=== PATIENT | male | born 1960 | race Two or more races ===

== ENCOUNTER 2019-08-23 18:43 | Emergency (ER) | payer SELFPAY ==
[~2019-08-23] VITALS: Ht 165.1 cm; Wt 68.0 kg
--- NOTE | 2019-08-23 18:58 | NUR ---
ED Nurse Note: Pt walked in from home c/o right lower back pain d/t injury during a basketball game today around 1300. Pt was playing the game when another player ran into him. Pt having difficulty sitting/lying down and changing positions. Respirations even and unlabored on room air. Vitals stable as documented.
[2019-08-23 19:00] VITALS: BP 148/78
--- NOTE | 2019-08-23 19:06 | NUR ---
HAND-OFF: Report given to SNEHAL Crawford. Plan of care endorsed.
--- NOTE | 2019-08-23 19:10 | NUR ---
ED Nurse Note: Received report from SNEHAL Park. Patient resting in room, no acute distress noted.
[2019-08-23] MEDS ORDERED: HYDROcodone/Acetamin 7.5/325 tab ORAL ONE (19:30)
--- NOTE | 2019-08-23 19:30 | Emergency Room Report ---
History of Present Illness General Chief Complaint: Lower Back Pain or Injury Source: Patient Present Illness HPI 59-year-old male presents to the emergency department complaining of 10 out of 10 severity localized pain to the posterior right lower rib after being struck there while playing basketball at approximately 1 PM today. Patient reports he is tried Tylenol several times as well as naproxen with no relief of his symptoms. Patient reports pain is severe and exacerbated upon palpation or taking deep breaths. Patient denies bruising at this time he denies open wounds or bleeding. Patient denies falling completely to the ground. Patient denies having midline neck or back pain. He denies any significant past medical history otherwise. No other aggravating or relieving factors. he denies CP, Palpitations or SOB. He reports severe difficulty with finding a position of comfort. COVID-19 risk:Travel to affect: No Allergies: Coded Allergies: No Known Allergies (Unverified , 08/23/19) Patient History Past Medical History: see triage record Past Surgical History: none Pertinent Family History: none Reviewed Nursing Documentation: PMH: Agreed; PSxH: Agreed Nursing Documentation-PMH Past Medical History: No Stated History Review of Systems All Other Systems: negative except mentioned in HPI Physical Exam Vital Signs Date Time Temp Pulse Resp B/P (MAP) Pulse Ox O2 Delivery O2 Flow Rate FiO2 08/23/19 18:47 98.2 77 16 156/91 (112) 99 Room Air Sp02 EP Interpretation: reviewed, normal General Appearance: no apparent distress, alert, GCS 15, non-toxic Head: normocephalic, atraumatic Eyes: bilateral eye normal inspection, bilateral eye PERRL ENT: hearing grossly normal, normal voice Neck: full range of motion Respiratory: lungs clear, normal breath sounds, speaking full sentences, other - Moderate localized TTP to the posterior lower right ribs, no flail chest, no bruises. Cardiovascular #1: regular rate, rhythm, no edema Gastrointestinal: non tender, soft Rectal: deferred Genitourinary: normal inspection, no CVA tenderness Musculoskeletal: back normal, normal range of motion, gait/station normal, non- tender Neurologic: alert, motor strength/tone normal, oriented x3, sensory intact, responsive, speech normal Psychiatric: judgement/insight normal Skin: no rash, normal color, normal inspection Medical Decision Making PA Attestation Dr. Jacques is my supervising Physician whom patient management has been discussed with. Diagnostic Impression: Primary Impression: Rib contusion Qualified Codes: S20.211A - Contusion of right front wall of thorax, initial encounter Additional Impression: Rib pain on right side ER Course 59-year-old male presents to the emergency department complaining of 10 out of 10 severity localized pain to the posterior right lower rib after being struck there while playing basketball at approximately 1 PM today. Patient reports he is tried Tylenol several times as well as naproxen with no relief of his symptoms. Patient reports pain is severe and exacerbated upon palpation or taking deep breaths. Patient denies bruising at this time he denies open wounds or bleeding. Patient denies falling completely to the ground. Patient denies having midline neck or back pain. He denies any significant past medical history otherwise. No other aggravating or relieving factors. he denies CP, Palpitations or SOB. He reports severe difficulty with finding a position of comfort. Ddx considered but are not limited to Fracture, dislocation, contusion, Sprain/ Strain/Spasm, Vital signs: are WNL, pt. is afebrile H&PE are most consistent with musculoskeletal injury will perform imaging to r/ o fractures/dislocations. ORDERS: - X-ray right rib series with PA view - negative for fx, Dislocation, or significant soft tissue injury, per preliminary read in ED, and signed by EMIL Garcia, my supervising physician has reviewed, and agrees with my interpretation. ED INTERVENTIONS: -Summit PO -Lidoderm TP -I do not identify an emergent condition at this time. With current presentation , pt. is stable for close outpatient follow up and conservative treatment. D/ w pt. to return promptly to ED with worsening or new symptoms.- Pt. verbalizes' understanding and agreement with proposed treatment plan. DISCHARGE: At this time pt. is stable for d/c to home. Will provide printed patient care instructions, and any necessary prescriptions. Care plan and follow up instructions have been discussed with the patient prior to discharge. Other X-Ray Diagnostic Results Other X-Ray Diagnostic Results : X-Ray ordered: Right Rib Series with PA view # of Views/Limited Vs Complete: 4 View Indication: Pain EP Interpretation: Yes PA Xray: Interpretation reviewed, by supervising MD, and agrees with findings. Interpretation: no dislocation, no soft tissue swelling, no fractures Impression: No acute disease Electronically Signed by: Christie Garcia PA-C Last Vital Signs Date Time Temp Pulse Resp B/P (MAP) Pulse Ox O2 Delivery O2 Flow Rate FiO2 08/23/19 19:00 98.2 74 16 148/78 99 Room Air Status: improved Disposition: HOME, SELF-CARE Condition: Stable Scripts Hydrocodone Bit/Acetaminophen 5-325* (NORCO 5-325 TABLET*) 1 Each Tablet 1 TAB ORAL Q6H PRN for FOR PAIN, #15 TAB 0 Refills Prov: Christie Garcia 08/23/19 Ibuprofen* (MOTRIN*) 600 Mg Tablet 600 MG ORAL THREE TIMES A DAY, #30 TAB 0 Refills Prov: Christie Garcia 08/23/19 Referrals: NOT CHOSEN IPA/MD,REFERRING (PCP) Departure Forms: Return to Work Return to Work Date: Aug 27, 2019 Work Restrictions: None, No Heavy Lifting Other Restrictions: light duty. May return Sooner if Symptoms have resolved. Return to Full Activity: Sep 02, 2019 Patient Instructions: Rib Contusion Additional Instructions: Take medications as directed. Do not drink alcohol, drive, or operate heavy machinery while taking Summit as this may cause drowsiness. Follow up with a Primary Care Provider in 3-5 days, even if your symptoms have resolved. Return sooner to ED if new symptoms occur, or current symptoms become worse. - Please note that this Emergency Department Report was dictated using [employer] technology software, occasionally this can lead to erroneous entry secondary to interpretation by the dictation equipment. Christie Garcia Aug 23, 2019 19:30
--- NOTE | 2019-08-23 19:36 | NUR ---
ED Nurse Note: Patient taken to Xray in stable condition.
--- NOTE | 2019-08-23 19:46 | NUR ---
ED Nurse Note: Patient returned from Xray in stable condition.
--- NOTE | 2019-08-23 20:21 | Diagnostic Imaging Report ---
Indication: Chest wall Trauma and right rib pain. Comparison: None Findings: 4 views of the right chest wall was obtained for evaluation of the ribs. There is no acute fracture identified. There is no soft tissue swelling demonstrated. The lung is essentially clear. The costophrenic angle is sharp. Other osseous structures visualized are unremarkable. Impression: Negative unilateral rib series
[2019-08-23] MEDS ORDERED: NORCO 5-325 TA1 EAC1 ORAL (20:34)
[2019-08-23] MEDS ORDERED: IBUPROFEN600 MG ORAL (20:34)
--- NOTE | 2019-08-23 20:42 | NUR ---
ED Nurse Note: ER PA at bedside
[2019-08-23 20:47] VITALS: BP 145/82
--- NOTE | 2019-08-23 20:47 | NUR ---
ER DISCHARGE NOTE: Patient is cleared to be discharged per ERMD, pt is aox4, on room air, with stable vital signs. pt was given dc and prescription instructions, pt was able to verbalize understanding, pt id band removed. pt is able to ambulate with steady gait accompanied by . pt took all belongings. pt stable upon discharge.
== END 2019-08-23 20:47 | disposition home or self-care (01) ==
LOC: EMR 19:16
DX: S20.211A Contusion of right front wall of thorax, initial encounter (principal); W22.8XXA Striking against or struck by other objects, initial encounter; Y93.67 Activity, basketball; Y92.9 Unspecified place or not applicable
CPT/HCPCS: 99283